=== PATIENT | male | born 1975 | race Caucasian/White ===

== ENCOUNTER 2018-11-17 14:10 | Emergency (ER) | payer OTHER ==
[~2018-11-17] VITALS: Ht 180.3 cm; Wt 90.7 kg
[~2018-11-17 14:10] MED LIST: KEFLEX500 MG PO; PERCOCET 7.5-51 EACH PO
[2018-11-17] MEDS ORDERED: NOHOMEMEDICATIONS (14:19)
[2018-11-17] MEDS ORDERED: NORCO 5-325 TA1 EACH PO (16:13)
[2018-11-17] MEDS ORDERED: NAPROSYN500 MG PO (16:13)
[2018-11-17] MEDS ORDERED: AUGMENTIN 500-1 EACH PO (16:13)
[2018-11-17 16:56] VITALS: BP 142/92
== END 2018-11-17 16:40 | disposition home or self-care (01) ==
LOC: M.ERS 14:10
DX: S92.424A Nondisplaced fracture of distal phalanx of right great toe, initial encounter for closed fracture (principal); S91.111A Laceration without foreign body of right great toe without damage to nail, initial encounter; W01.0XXA Fall on same level from slipping, tripping and stumbling without subsequent striking against object, initial encounter; Y93.02 Activity, running; Y92.096 Garden or yard of other non-institutional residence as the place of occurrence of the external cause; Y99.8 Other external cause status